=== PATIENT | male | born 1960 | race Caucasian/White ===

== ENCOUNTER 2023-07-06 13:45 | Emergency (ER) | payer OTHER, SELFPAY ==
[2023-07-06 13:53] VITALS: BP 127/78
[2023-07-06 14:35] VITALS: BMI 36.0
[2023-07-06 14:47] LABS: % Basophils 0.5 % (0-2); % Eosinophils 0.6 % (0-6); % Immature Granulocytes 0.4 % (0-0.5); % Lymphocytes 16.1 % (20.5-51.1); % Monocytes 9.6 % (1.7-9.3); % Neutrophils 72.8 % (42.2-75.2); Absolute Basophils 0.1 10^3/uL (0-0.2); Absolute Eosinophils 0.1 10^3/uL (0-0.7); Absolute Immature Granulocytes 0.1 10^3/uL (0-0.05); Absolute Lymphocytes 2.3 10^3/uL (1.2-3.4); Absolute Monocytes 1.4 10^3/uL (0.1-0.6); Absolute Neutrophils 10.5 10^3/uL (1.4-6.5); Hematocrit 40.1 % (39.0-52.0); Mean Corp Hgb Conc. 34.9 g/dL (33.0-37.0); Mean Corpuscular Hgb 30.2 pg (27.0-31.0); Mean Corpuscular Volume 86.4 fL (80.0-94.0); Mean Platelet Volume 10.7 fL (7.4-10.4); Nucleated Red Blood Cells % 0 % (-); Platelet Count 195 10^3/uL (130-400); Red Blood Cell Count 4.64 10^6/uL (4.70-6.10); Red Cell Dist. Width 13.2 % (11.5-14.5); White Blood Cell Count 14.5 10^3/uL (4.8-10.8)
[2023-07-06 15:02] LABS: ALT (SGPT) 25 U/L (0-50); AST (SGOT) 24 U/L (17-59); Albumin 4.1 g/dl (3.5-5.0); Alkaline Phosphatase 59 U/L (38-126); Blood Urea Nitrogen 12 mg/dl (9-20); Calcium 9.2 mg/dl (8.4-10.2); Carbon Dioxide 27 mmol/L (22-30); Chloride 102 mmol/L (98-107); Estimated Creatinine Clearance > 125 ml/min; Glucose 93 mg/dl (70-99); Lipase 31 U/L (23-300); Potassium 3.8 mmol/L (3.5-5.1); Sodium 134 mmol/L (135-145); Total Bilirubin 2.3 mg/dl (0.2-1.3); eGFR > 60.00
[2023-07-06] MEDS: NSS 500 IV (15:35)
[2023-07-06] MEDS: TORADOL 30 MG IV (15:35)
--- NOTE | 2023-07-06 16:13 | ED.GENMED ---
History of Present Illness
General
Chief Complaint: Abdominal Pain
Source: patient
Exam Limitations: none
Time Seen by Provider: 07/06/23 15:12
Nursing documentation reviewed up to this point in time: agreed with
Travel History
Have you had any contact with someone who has COVID-19?: No
Do you have any symptoms of coronavirus? Fever > 100 degrees, chills, cough, shortness of breath, sore throat, loss of taste or smell, muscle aches, or headache?: No
History of Present Illness
History of Present Illness:
62-year-old male with past medical history of GERD hypertension presenting to the emergency department today with concerns of a mid abdominal pain that seems to be mostly in the lower abdomen and also in the rectal region worsening over the past 2
days or so. Feels somewhat similar to previous episode of diverticulitis. Denies any fevers did notice darkening of his stool yesterday but no ongoing issues today. No vomiting no fevers.
Past History
Past History
ED Past Medical History: HTN
ED Past Surgical History: Other (left tibia fracture with plate and screws.)
Social History
Tobacco: Non-smoker
Alcohol: Occasional (3-4 times a week)
Drug: None
Personal:
Living: with family
Review of Systems
Review of Systems
Allergies reviewed?: Yes
All Other Systems: ROS reviewed and negative except as documented in HPI and ROS
Phy Exam
Physical Exam
Physical Exam:
GENERAL: Alert , in no apparent distress
EYE: pupils equal and reactive
NECK: Supple, no significant adenopathy.
ENT: o/p clr, mmm.
CARDIAC: Regular rate and rhythm .
LUNGS: Clear breath sounds bilaterally, no acute respiratory distress, no wheezes/rales/rhonchi
ABDOMEN: Mild tenderness palpation to the lower abdomen mainly to the left lower quadrant. Rectal examination with brown stool guaiac negative.
NEUROLOGICAL: Alert and oriented, no focal neuro deficits
SKIN: Warm and dry, skin intact.
MUSCULOSKELETAL: No edema, well perfused.
PSYCH: Normal and appropriate interaction.
Course
Orders/Labs/Results
Orders:
Orders
07/06/23 14:37
IV Insert/Care/Rem.- Treatment PRN
07/06/23 14:41
Complete Blood Count/With Diff Urgent
Comprehensive Metabolic Panel Urgent
Lipase Urgent
07/06/23 15:30
CT Abd/Pel (IV only)-DH only Urgent
Comment:
Reason For Exam: lower abd pain
Ketorolac [Toradol] 30 mg IV NOW STA
07/06/23 15:31
0.9% Sodium Chloride 500 ml [Nss] 500 ml IV BOLUS
07/06/23 17:31
Urinalysis Reflex To Culture Urgent
Date Specimen was Collected: 07/06/23
Time Specimen was Collected: 17:31
Urine Microscopic Reflex Cult Urgent
07/06/23 19:27
Amoxicillin 875 mg/Clav 125 mg [Augmentin 875 mg/125 mg] 1 tablet PO NOW STA
Abnormal Lab Results
07/06/23 07/06/23
14:41 17:31
WBC 14.5 H 10^3/uL
(4.8-10.8)
RBC 4.64 L 10^6/uL
(4.70-6.10)
MPV 10.7 H fL
(7.4-10.4)
Abs Immat Gran (auto) 0.1 H 10^3/uL
(0-0.05)
Absolute Neuts (auto) 10.5 H 10^3/uL
(1.4-6.5)
Absolute Monos (auto) 1.4 H 10^3/uL
(0.1-0.6)
Lymphocytes % 16.1 L %
(20.5-51.1)
Monocytes % 9.6 H %
(1.7-9.3)
Sodium 134 L mmol/L
(135-145)
Total Bilirubin 2.3 H mg/dl
(0.2-1.3)
Ur Occult Blood Reflex 1+ A
(Negative)
Urine RBC 3-6 A /HPF
(0-2)
Urine Bacteria (Reflex) Few A
(Negative)
07/06/23 14:41
07/06/23 14:41
Vital Signs
Initial and Last Documented VS:
Initial Vital Signs
Temp Pulse Resp BP Pulse Ox
98.5 F 75 16 127/78 98
07/06/23 13:53 07/06/23 13:53 07/06/23 13:53 07/06/23 13:53 07/06/23 13:53
Last Documented Vital Signs
Temp Pulse Resp BP Pulse Ox
97.7 F 80 16 118/82 96
07/06/23 17:30 07/06/23 17:30 07/06/23 17:30 07/06/23 17:30 07/06/23 17:30
MDM/Problems Addressed
MDM/Problems Addressed:
62-year-old male presenting to the emergency department today with concerns of lower abdominal pain over the past few days. Here he has minimal discomfort to the left lower quadrant. Vital signs normal throughout ER stay white count of 14.5 but no
additional acute abnormalities to labs. Urinalysis without emergent findings. CT scan showing uncomplicated diverticulitis which likely explains the patient's symptoms plan for treatment with antibiotic and close outpatient follow-up. Return
precautions given.
*Critical Care Note
Total Time (30-74mins, 75-104mins- exclusive of procedures): Not Applicable
ED Attending Note
-
Portions of this chart may have been created with voice recognition software.� Occasional wrong word or��sound alike� substitutions may have occurred due to the inherent limitations of voice recognition software.
Discharge Plan
Departure
Patient Disposition: Home (Routine Discharge)
Date of Disposition: 07/06/23
Time of Disposition: 19:24
Patient with high blood pressure during this ER visit?: No
Condition: Good
Covid-19: Not Applicable
Discharge Problem:
Diverticulitis
Instructions: Diverticulitis (DC)
Prescriptions:
New
amoxicillin-pot clavulanate 875-125 mg tablet
1 tab PO Q12H 7 Days Qty: 14 0RF
No Action
cyanocobalamin (vitamin B-12) 1,000 MCG tablet
1,000 mcg PO DAILY
alprazolam 0.5 MG tablet
0.5 mg PO TIDPRN PRN (Reason: anxiety)
Patient Comments:
05/09/2021: last filled 04/04/21, 90 tabs for [address] [id number]
lansoprazole 30 MG tablet,disintegrat, delay rel
30 mg PO DAILY
losartan-hydrochlorothiazide 1 TAB tablet
1 tab PO DAILY
acetaminophen 325 MG tablet
650 mg PO Q4HPRN PRN (Reason: mild pain/JOSEPH/temp> 100.4F) 0RF
amoxicillin-pot clavulanate 1 TABLET tablet
1 tab PO Q12 10 Days Qty: 20 0RF
Referrals:
Ney Mann MD [Family Provider] -
Rc Mcgee MD [Active] - Follow up in 10 days
Activity Restrictions/Additional Instructions:
You came to the emergency department today with abdominal pain. Have diverticulitis. No signs of complication. Please take Augmentin twice daily and slowly progress your diet over the next few days. Return to the emergency department for any
worsening, new or concerning symptoms.
Interventions
Interventions:
*Risk Screen - Suicide Last Done: 07/06/23 14:35
*General Assessment Last Done: 07/06/23 14:35
*Neglect/Abuse Screening Last Done: 07/06/23 14:35
*ED COVID-19 Vaccine History Last Done: 07/06/23 14:35
TF-Miejut-Oevojshseo Assessment Last Done: 07/06/23 14:35
Discharge Date and Time
Print Language: GIBRALTARIAN
[2023-07-06 17:30] VITALS: BP 118/82
[2023-07-06 17:45] LABS: Urine Albumin Negative (Neg - Trace); Urine Bilirubin Negative (Negative); Urine Character Clear (Clear); Urine Color Yellow; Urine Glucose Negative (Negative); Urine Ketone Negative (Negative); Urine Leukocyte Negative (Negative); Urine Nitrite Negative (Negative); Urine Occult Blood 1+ (Negative); Urine Specific Gravity 1.015 (<1.030); Urine Urobilinogen Negative (Neg - 1+)
[2023-07-06 18:00] LABS: Urine Bacteria Few (Negative); Urine White Cell 0-2 /HPF (0-5)
[2023-07-06] MEDS: AUGMENTIN 875 MG/125 MG 1 TABLET PO (19:36)
[2023-07-06 20:00] VITALS: BP 125/78
== END 2023-07-06 20:02 | disposition home or self-care (01) ==
LOC: EMR 13:45
PROVIDERS: Physician Assistant; EMERGENCY PHYSICIAN Emergency Medicine; FAMILY PHYSICIAN Family Medicine
DX: K57.32 Diverticulitis of large intestine without perforation or abscess without bleeding (principal)
CPT/HCPCS: 99285; 96374; 74177; 80053; 81003; 81015; 83690; 85025; Q9967

== ENCOUNTER → 2023-12-04 12:16 | Outpatient (REF) | payer OTHER, SELFPAY | LOC: RAD 12:16 | PROVIDERS: ATTENDING PHYSICIAN Nurse Practitioner Family; FAMILY PHYSICIAN Family Medicine | DX: R04.2 Hemoptysis (principal) | CPT/HCPCS: 71046 ==

== ENCOUNTER → 2023-12-13 08:22 | Outpatient (REF) | payer OTHER, SELFPAY | LOC: HWRAD 08:22 | PROVIDERS: ATTENDING PHYSICIAN Nurse Practitioner Family; FAMILY PHYSICIAN Family Medicine | DX: R04.2 Hemoptysis (principal) | CPT/HCPCS: 71260; Q9967 ==

== ENCOUNTER → 2024-01-29 08:40 | Outpatient (REF) | payer OTHER, SELFPAY | LOC: HWRCS 08:40 | PROVIDERS: ATTENDING PHYSICIAN Internal Medicine Critical Care Medicine; FAMILY PHYSICIAN Family Medicine | DX: I25.10 Atherosclerotic heart disease of native coronary artery without angina pectoris (principal); R93.89 Abnormal findings on diagnostic imaging of other specified body structures | CPT/HCPCS: 71250; 93306 ==

== ENCOUNTER → 2024-02-06 09:15 | Outpatient (REF) | payer OTHER, SELFPAY | LOC: RST 09:15 | PROVIDERS: ATTENDING PHYSICIAN Internal Medicine Critical Care Medicine; FAMILY PHYSICIAN Family Medicine | DX: T17.908S Unspecified foreign body in respiratory tract, part unspecified causing other injury, sequela (principal) | CPT/HCPCS: 74230; 92611 ==